=== PATIENT | male | born 1980 | race Caucasian/White ===

== ENCOUNTER 2025-07-27 22:11 | Emergency (ER) | payer OTHER ==
[~2025-07-27] VITALS: Ht 172.7 cm; Wt 65.0 kg
[2025-07-27 22:44] VITALS: BP 115/72; PULSE 98; RESP 16; TEMP 98.3; O2SAT 100
[2025-07-28] MEDS: BACITRACIN 0.9 GM PACKET OINTMENT TP ONE (00:17)
== END 2025-07-28 01:10 ==
LOC: EMS 22:11
DX: S60.511A Abrasion of right hand, initial encounter (principal); Z88.8 Allergy status to other drugs, medicaments and biological substances; W26.0XXA Contact with knife, initial encounter; Y93.89 Activity, other specified; Y92.89 Other specified places as the place of occurrence of the external cause; Y99.8 Other external cause status
CPT/HCPCS: 99283